=== PATIENT | female | born 1945 | race Caucasian/White ===

== ENCOUNTER 2018-03-17 11:44 | Outpatient (CLI) | payer OTHER, SELFPAY ==
[2018-03-17 12:05] LABS: Abs Immature Grans 0.09 k/cumm (0.0-0.09); Absolute Basophil Count 0.07 k/cumm (0.0-0.2); Absolute Eosinophil Count 0.05 k/cumm (0.0-0.7); Absolute Lymphocyte Count 1.64 k/cumm (1.2-3.4); Absolute Monocyte Count 0.87 k/cumm (0.11-0.7); Absolute Neutrophil Count 7.74 k/cumm (1.2-6.7); Basophils % 0.7; Eosinophils % 0.5; HCT 35.2 % (36.0-46.0); HGB 11.9 g/dL (12.0-15.5); Immature Grans % 0.9; Lymphocytes % 15.7; Mean Corp. HGB Concentration 33.8 g/dL (32.0-36.0); Mean Corpuscular Hemoglobin 32.2 pg (27.0-33.0); Mean Corpuscular Volume 95.1 fL (80-95); Mean Platelet Volume 8.8 fL (8.0-11.0); Monocytes % 8.3; Neutrophils % 73.9; Platelet Count 456 x1000/uL (130-400); RBC Distribution Width 14.9 % (11.7-14.6); White Blood Cell Count 10.46 k/cumm (4.4-10.8)
[2018-03-17 12:49] LABS: ALT 75 U/L (12-78); AST 190 U/L (15-37); Albumin 2.9 g/dL (3.4-5.0); Alkaline Phosphatase 241 U/L (46-116); Anion Gap 11.7 mmol/L (3-11); BUN 21 mg/dL (7-18); CO2 19.3 mmol/L (21.0-32.0); CREATININE 1.35 mg/dL (0.55-1.02); Chloride 95 mmol/L (98-107); Estimated GFR 38.33 (mL/min/1.73m2); Glucose 97 mg/dL (70-100); Potassium 4.9 mmol/L (3.5-5.1); Sodium 126 mmol/L (136-145); TSH 6.08 uIU/mL (0.358-3.74); Total Protein 6.9 g/dL (6.4-8.2)
[2018-03-17 13:05] LABS: T4 4.7 ug/dL (4.5-12.5)
== END 2018-03-17 11:45 ==
PROVIDERS: Visit Provider Internal Medicine Medical Oncology
DX: C34.92 Malignant neoplasm of unspecified part of left bronchus or lung (principal)
CPT/HCPCS: 36415; 80053; 84436; 84443; 85025

== ENCOUNTER 2018-04-07 10:54 | Outpatient (CLI) | payer OTHER, SELFPAY ==
[2018-04-07 11:12] LABS: Abs Immature Grans 0.22 k/cumm (0.0-0.09); Absolute Eosinophil Count 0.11 k/cumm (0.0-0.7); Absolute Lymphocyte Count 1.82 k/cumm (1.2-3.4); Absolute Monocyte Count 0.93 k/cumm (0.11-0.7); Basophils % 0.7; Eosinophils % 0.8; HCT 34.7 % (36.0-46.0); HGB 11.8 g/dL (12.0-15.5); Immature Grans % 1.5; Lymphocytes % 12.7; Mean Corpuscular Hemoglobin 32.1 pg (27.0-33.0); Mean Corpuscular Volume 94.3 fL (80-95); Monocytes % 6.5; Neutrophils % 77.8; Platelet Count 506 x1000/uL (130-400); RBC 3.68 m/cumm (4.00-5.20); RBC Distribution Width 14.5 % (11.7-14.6)
[2018-04-07 11:23] LABS: Absolute Neutrophil Count 11.13 k/cumm (1.2-6.7)
[2018-04-07 11:33] LABS: ALT 81 U/L (12-78); AST 209 U/L (15-37); Alkaline Phosphatase 314 U/L (46-116); Anion Gap 14.3 mmol/L (3-11); BUN 14 mg/dL (7-18); Bilirubin, Total 0.6 mg/dL (0.2-1.0); CO2 19.7 mmol/L (21.0-32.0); CREATININE 1.38 mg/dL (0.55-1.02); Calcium 8.4 mg/dL (8.5-10.1); Chloride 91 mmol/L (98-107); Estimated GFR 37.37 (mL/min/1.73m2); Glucose 127 mg/dL (70-100); Potassium 4.5 mmol/L (3.5-5.1); Sodium 125 mmol/L (136-145); T4 5.7 ug/dL (4.5-12.5); TSH 19.38 uIU/mL (0.358-3.74); Total Protein 7.5 g/dL (6.4-8.2)
== END 2018-04-07 10:55 ==
PROVIDERS: Visit Provider Internal Medicine Medical Oncology
DX: C34.92 Malignant neoplasm of unspecified part of left bronchus or lung (principal); E03.2 Hypothyroidism due to medicaments and other exogenous substances
CPT/HCPCS: 36415; 80053; 84436; 84443; 85025